=== PATIENT | male | born 1990 | race Two or more races ===

== ENCOUNTER 2019-02-16 05:36 | Emergency (ER) | payer SELFPAY ==
[2019-02-16 06:17] LABS: BASOPHILS % 0.5 % (0.0-1.5); NEUTROPHILS # 2.7 # k/uL (1.4-7.7)
[2019-02-16 06:24] LABS: eGFR (Non-African) > 60
--- NOTE | 2019-02-16 06:36 | Diagnostic Imaging Report ---
DENNY GRAY (CLIENT SUCCESS DIRECTOR) - ER [facility] [address] [facility] [address] [place], [place]. [address] Report Submission Date: Feb 16, 2019 6:25:12 AM CDT Patient Study Name: CHRISTOPHER HAQUE Date: Feb 16, 2019 5:54:00 AM CDT Modality Type: DX Gender: M Description: CHEST 2VIEW : 89 Institution: [facility] Physician: DENNY GRAY (CLIENT SUCCESS DIRECTOR) - ER PA AND LATERAL CHEST HISTORY: Short of breath COMPARISON: None PA and Lateral Chest dated February 16, 2019 demonstrates a normal cardiomediastinal silhouette. Pulmonary vascularity is normal. Lungs are clear. IMPRESSION: NO ACTIVE DISEASE. Electronically signed on Feb 16, 2019 6:25:12 AM CDT by: Minal SAEED
--- NOTE | 2019-02-16 06:46 | ED Physician Documentation ---
General Adult - HISTORIAN Historian: patient - HPI Stated Complaint: Shortness of breath Chief Complaint: General Adult Further Comments: yes (28 year old male patient brought in via EMS. Patient was driving when he became short of breath, he pulled over at the rest stop and called 911. On arrival EMS reported patient was hyperventilating, c/o finger tingling.) - ROS CONST: no problems EYES/ENT: none CVS/RESP: none GI/: none MS/SKIN/LYMPH: none NEURO/PSYCH: denies: headache, fainting, dizziness, tingling, numbness, difficulty walking, difficulty with speech, anxiety, depression, other - PAST HX Past History: other (Hep C - completed treatment) Allergies/Adverse Reactions: Allergies Allergy/AdvReac Type Severity Reaction Status Date / Time No Known Allergies Allergy Verified 02/16/19 05:48 Home Medications: Ambulatory Orders Medication Instructions Recorded NK 02/16/19 - SOCIAL HX Smoking History: non-smoker - FAMILY HX Family History: No - VITAL SIGNS Vital Signs: Vital Signs Temp Pulse Resp BP Pulse Ox 99.5 F 67 18 122/73 100 02/16/19 05:40 02/16/19 05:40 02/16/19 05:40 02/16/19 05:40 02/16/19 05:40 - REVIEWED ASSESSMENTS Nursing Assessment Reviewed: Yes Vitals Reviewed: Yes ED Results Lab/Radiology - Lab Results Lab Results: Lab Results 02/16/19 02/16/19 06:00 06:00 WBC 6.00 K/ul K/ul (4.00-12.00) RBC 5.26 M/ul H M/ul (3.90-5.20) Hgb 15.8 g/dL g/dL (12.0-18.0) Hct 47.0 % % (37.0-53.0) MCV 89.0 fl fl (80.0-100.0) MCH 30.0 pg pg (28.0-34.0) MCHC 33.6 g/dL g/dL (30.0-36.0) RDW 12.7 % % (11.3-14.3) Plt Count 247 K/mm3 K/mm3 (130-400) Neut % (Auto) 45.2 % % (39.0-79.0) Lymph % (Auto) 45.1 % % (16.0-50.0) [place] % (Auto) 7.9 % % (0.0-11.0) Eos % (Auto) 1.3 % % (0.0-6.8) Baso % (Auto) 0.5 % % (0.0-1.5) Neut # (Auto) 2.7 # k/uL # k/uL (1.4-7.7) Lymph # (Auto) 2.7 # k/uL # k/uL (0.6-4.0) [place] # (Auto) 0.5 # k/uL # k/uL (0.0-0.9) Eos # (Auto) 0.1 # k/uL # k/uL (0.0-0.6) Baso # (Auto) 0.0 # k/uL # k/uL (0.0-0.5) Sodium 139 mmol/L mmol/L (137-145) Potassium 3.7 mmol/L mmol/L (3.5-5.1) Chloride 102 mmol/L mmol/L (98-107) Carbon Dioxide 27 mmol/L mmol/L (22-30) BUN 16 mg/dL mg/dL (9-20) Creatinine 0.97 mg/dL mg/dL (0.66-1.25) Estimated Creat Clear 120 Est GFR ( Amer) > 60 (60 - ) Est GFR (Non-Af Amer) > 60 (60 - ) Glucose 106 mg/dL mg/dL (74-106) Calcium 9.7 mg/dL mg/dL (8.4-10.2) Total Bilirubin 0.9 mg/dL mg/dL (0.2-1.3) AST 26 U/L U/L (15-46) ALT 14 U/L U/L (13-69) Alkaline Phosphatase 41 U/L U/L (38-126) Total Protein 7.6 g/dL g/dL (6.3-8.2) Albumin 4.7 g/dL g/dL (3.5-5.0) - Orders Orders: ED Orders Category Date Time Status CHEST 2VIEW [RAD] Stat Exams 02/16/19 Completed CBC/PLATELET/DIFF Stat Lab 02/16/19 06:00 Completed CMP Stat Lab 02/16/19 06:00 Completed 0.9 % Sodium Chloride [Normal Saline] 1,000 ml Med 02/16/19 06:41 Discontinued IV .STK-MED 0.9 % Sodium Chloride [Normal Saline] 1,000 ml Med 02/16/19 06:42 Ordered IV NOW General Adult Physical Exam - PHYSICAL EXAM GENERAL APPEARANCE: [id number] N EENT: eye inspection normal, ERON RESPIRATORY: no resp distress, chest non-tender, breath sounds normal CVS: reg rate & rhythm, heart sounds normal, equal pulses, no murmur, no gallop, PMI nml, no JVD, no friction rub, 24 ABDOMEN: soft, no organomegaly, normal bowel sounds, no abdominal bruit, no distension BACK: normal inspection, no CVA tenderness SKIN: normal color, warm/dry, NR, INT, PAL, DR EXTREMITIES: non-tender NEURO: oriented X3, CN's nml as tested, motor nml, sensation nml, mood/affect nml Discharge Clincal Impression: Hyperventilating Referrals: Primary Doctor,No [Primary Care Provider] - 2 Days Condition: Stable Disposition: 01 HOME, SELF-CARE Decision to Admit: NO Decision Time: 06:59
[2019-02-16] MEDS: 0.9 % SODIUM CHLORIDE 1,000 ML IV ONE ×2 (06:50)
[2019-02-16 08:12] VITALS: BP 112/75
== END 2019-02-16 08:05 | disposition home or self-care (01) ==
LOC: ED 05:36
DX: R06.4 Hyperventilation (principal); R06.02 Shortness of breath
CPT/HCPCS: 71046; 80053; 85025; 99282; J7030; S1016